=== PATIENT | female | born 1995 | race African-American/Black ===

== ENCOUNTER → 2017-09-14 | Outpatient (CLI) | payer MEDICAID ==
[~2017-09-14] VITALS: Ht 160 cm; Wt 64.0 kg
[~2017-09-14] MED LIST: ACET-2123 PO; DOCU250C16 PO; DOXY100C PO; FLUT44HFA IH; GABA-531 PO; SENN-161 PO
[2017-09-14 14:50] VITALS: BP 114/67
== END | disposition home or self-care (01) ==
LOC: HBOWC 13:31
PROVIDERS: ATTEND Nurse Practitioner Adult Health
DX: L97.511 Non-pressure chronic ulcer of other part of right foot limited to breakdown of skin (principal); G89.29 Other chronic pain; G62.9 Polyneuropathy, unspecified; F32.9 Major depressive disorder, single episode, unspecified; F41.9 Anxiety disorder, unspecified
CPT/HCPCS: 97597; G0463

== ENCOUNTER 2017-10-30 18:39 | Emergency (ER) | payer MEDICAID ==
[~2017-10-30] VITALS: Ht 160 cm; Wt 65.0 kg
[~2017-10-30 18:39] MED LIST changes: -FLUT44HFA IH; -SENN-161 PO
[2017-10-30 20:20] LABS: BASOPHILS % (AUTO) 0.2 % (0.0-2.0); EOSINOPHILS % (AUTO) 1.1 % (1.0-6.0); HEMATOCRIT 34.3 % (36-46); HEMOGLOBIN 12.2 g/dL (12.0-16.0); LYMPHOCYTES # (AUTO) 2.6 K/uL (1.0-4.8); LYMPHOCYTES % (AUTO) 23.5 % (22.0-44.0); MEAN CORPUSCULAR HEMOGLOBIN 29.2 pg (26.0-34.0); MEAN CORPUSCULAR HGB CONC 35.6 G/dL (31.0-37.0); MEAN CORPUSCULAR VOLUME 82 fL (80-100); MONOCYTES # (AUTO) 0.9 K/uL (0.1-1.0); MONOCYTES % (AUTO) 7.7 % (2.0-9.0); NEUTROPHILS # (AUTO) 7.6 K/uL (1.8-7.7); NEUTROPHILS % (AUTO) 67.5 % (40.0-70.0); PLATELET COUNT (AUTO) 288 K/uL (150-450); RED BLOOD CELL COUNT(AUTO) 4.18 MIL/uL (4.00-5.20); RED CELL DISTRIBUTION WIDTH 15.4 % (11.5-14.5)
[2017-10-30 20:42] LABS: ANION GAP 5 mmol/L (8-16); CALCIUM, TOTAL 8.4 mg/dL (8.8-10.5); CARBON DIOXIDE 29 mmol/L (22-29); CHLORIDE 104 mmol/L (98-107); CREATININE 0.85 mg/dL (0.60-1.30); GLOMERULAR FILTR. RATE CALC > 60 mL/min (>60); GLUCOSE,RANDOM 79 mg/dL (70-110); POTASSIUM 3.9 mmol/L (3.5-5.1); SODIUM SERUM 138 mmol/L (136-145); UREA NITROGEN, BLOOD 8 mg/dL (7-18)
[2017-10-30 20:47] LABS: ALANINE AMINOTRANSFERASE 17 U/L (12-78); ALBUMIN 3.4 g/dL (3.4-5.0); ALKALINE PHOSPHATASE 72 U/L (46-116); ASPARTATE AMINOTRANSFERASE 16 U/L (15-37); BILIRUBIN,TOTAL 0.2 mg/dL (0.1-1.0); C-REACTIVE PROTEIN QUANT 4.33 mg/dL (0.00-0.30)
[2017-10-30] MEDS ORDERED: ONDANSETRON HCL 4 MG TABLET PO ONE (21:00)
[2017-10-30] MEDS ORDERED: HYDROCODONE/ACETAMINOPHEN 5-325 MG TABLET PO ONE (21:00)
[2017-10-30 21:14] VITALS: BP 132/80
[2017-10-30 22:08] LABS: ERYTHROCYTE SEDIMENTATION RATE 13 MM/HR (0-20)
== END 2017-10-30 21:16 | disposition home or self-care (01) ==
LOC: EMS 18:40
DX: L97.511 Non-pressure chronic ulcer of other part of right foot limited to breakdown of skin (principal)
CPT/HCPCS: 36415; 73630; 80053; 85025; 85651; 86140; 99285; Q0162